=== PATIENT | female | born 1965 ===

== ENCOUNTER 2018-03-22 10:13 | Emergency (ER) | payer OTHER ==
[2018-03-22 10:36] VITALS: BMI 29.6
[2018-03-22] MEDS ORDERED: diaZEpam 10 mg/2 ml Inj IVP STA (11:45)
[2018-03-22] MEDS ORDERED: Sodium Chloride 0.9% 1,000 ML IV ONE (11:51)
[2018-03-22] MEDS ORDERED: Sodium Chloride 0.9% 1,000 ML ONE (11:57)
[2018-03-22 11:59] LABS: BASO % 0.5 % (0.0-2.0); EOS # 0.2 K/uL (0.0-0.7); EOS % 2.1 % (0.0-4.0); HEMOGLOBIN 13.1 g/dL (11.0-16.0); LYMPH # 2.5 K/uL (1.0-4.3); LYMPH % 30.8 % (20.0-40.0); MEAN CELL VOLUME 79.1 fL (81.0-99.0); MEAN CORPUSCULAR HEMOGLOBIN 26.7 pg (27.0-31.0); MEAN CORPUSCULAR HGB CONC 33.7 g/dL (33.0-37.0); MEAN PLATELET VOLUME 8.9 fL (7.2-11.7); MONO # 0.5 K/uL (0.0-0.8); MONO % 5.8 % (0.0-10.0); NEUT % 60.8 % (50.0-75.0); RBC 4.89 Mil/uL (3.80-5.20); RED CELL DISTRIBUTION WIDTH 13.9 % (11.5-14.5); WHITE BLOOD COUNT 8.2 K/uL (4.8-10.8)
[2018-03-22 12:13] LABS: INR 1.2
[2018-03-22 12:14] LABS: PROTHROMBIN TIME 13.1 SECONDS (9.7-12.2)
[2018-03-22 12:18] LABS: ALB/GLOB RATIO 1.2 (1.0-2.1); ALBUMIN 4.1 g/dL (3.5-5.0); ALT/SGPT 31 U/L (9-52); AST/SGOT 24 U/L (14-36); BLOOD UREA NITROGEN 11 mg/dL (7-17); CALCIUM 9.8 mg/dl (8.6-10.4); GFR AFRICAN-AMERICAN > 60; GFR NON-AFRICAN AMERICAN > 60; LIPASE 65 U/L (23-300)
[2018-03-22 12:32] LABS: SQUAMOUS EPITHIAL 11 /hpf (0-5); URINE BACTERIA RARE (<OCC); URINE BILIRUBIN NEGATIVE (NEGATIVE); URINE BLOOD 1+ (NEGATIVE); URINE CLARITY Hazy (Clear); URINE COLOR Yellow (YELLOW); URINE GLUCOSE (UA) NORMAL (Normal); URINE LEUKOCYTE ESTERASE TRACE Leu/uL (Negative); URINE PROTEIN NEGATIVE (NEGATIVE); URINE UROBILINOGEN NORMAL mg/dL (0.2-1.0)
--- NOTE | 2018-03-22 14:21 | C.PDOC ---
History Of Present Illness 52 yo female w/PMHx of L-spine herniated disc, chronic lower back pain come in for evaluation of Right sided lower back pain radiating down to Right leg, associated with Right foot tingling, intermittent numbness worsen for past week. Pt admits, takes percorcet without improvement in pain. Pt also sts, " takes Ibuprofen and have constipation from it, bleeding from my rectum". Pt admits, was seen by PMD and was ref to Neurology for further evaluation and PM for pain treatment. Otherwise, pt denies high fever, chills, headache, dizziness , sore throat, neck pain, CP, SOB, dyspnea, palpitation, abd. pain, N/V/D, hematemesis, melena, UTI sx, denies saddle anesthesia, new weakness or sensory changes. Ambulate to ED w/assistance of cane, appears in pain. FYI: [facility] review, pt has multiple Rx percocet, ambien. Last ones: 02/26/18#60, #60, 12/19/16#60, 11/16/17#60, trace down monthly Time Seen by Provider: 03/22/18 11:03 Chief Complaint (Nursing): GI Problem History Per: Patient Past Medical History Reviewed: Historical Data, Nursing Documentation, Vital Signs Vital Signs: Last Vital Signs Temp 98 F 03/22/18 15:45 Pulse 85 03/22/18 15:01 Resp 19 03/22/18 15:01 BP 155/86 H 03/22/18 15:01 Pulse Ox 98 03/22/18 15:01 - Medical History PMH: Asthma, Back Problems (herniated discs in lower back), Depression, HTN, Hypercholesterolemia, Kidney Stones, Obstructive Bowel, Chronic Kidney Disease Surgical History: Cholecystectomy - [facility] Procedures CONTRAST AORTOGRAM (12/25/13) CONTRAST ARTERIOGRAM-LEG (12/25/13) Family History: States: No Known Family Hx - Social History Hx Tobacco Use: Yes Hx Alcohol Use: No Hx Substance Use: Yes (weed) - Immunization History Hx Tetanus Toxoid Vaccination: No Hx Influenza Vaccination: No Hx Pneumococcal Vaccination: No Review Of Systems Except As Marked, All Systems Reviewed And Found Negative. Constitutional: Negative for: Fever, Chills ENT: Negative for: Throat Pain Cardiovascular: Negative for: Chest Pain Respiratory: Negative for: Cough, Shortness of Breath Gastrointestinal: Positive for: Constipation. Negative for: Nausea, Vomiting, Abdominal Pain Genitourinary: Negative for: Dysuria, Frequency, Incontinence Musculoskeletal: Positive for: Back Pain. Negative for: Neck Pain Skin: Negative for: Rash Neurological: Negative for: Weakness, Numbness Physical Exam - Physical Exam Appears: Well, Non-toxic, No Acute Distress Skin: Normal Color, Warm, Dry, No Rash Head: Normacephalic Eye(s): bilateral: PERRL Nose: No Discharge Oral Mucosa: Moist Throat: No Erythema, No Drooling Neck: Trachea Midline, Supple Cardiovascular: Rhythm Regular Respiratory: No Decreased Breath Sounds, No Accessory Muscle Use, No Stridor, No Wheezing Gastrointestinal/Abdominal: Soft, No Tenderness, No Distention, No Guarding, No Rebound Back: No CVA Tenderness, Paraspinal Tenderness (Right sided lumbar extend down to Right gluteus, Right posterior thigh) Extremity: Normal ROM, Tenderness (Right posterior thigh), No Pedal Edema, No Deformity, No Swelling Neurological/Psych: Oriented x3, Normal Speech, Normal Motor, Normal Sensation ( mild decrease sensation Right foot compare to left foot.), Normal Reflexes ED Course And Treatment - Laboratory Results Result Diagrams: 03/22/18 11:52 03/22/18 11:52 Lab Interpretation: Normal O2 Sat by Pulse Oximetry: 99 Pulse Ox Interpretation: Normal Progress Note: Pt was OBS in ED for 8 hours and remaine dtsable. Pt was re- evaluated every hour, neurologicaly intact. Pt was c/o back pain, was requesting " Morphine IV", percocet PO given. case was discussed with pt's PMD . Plan, no narcotic rx, RI, discharge with outpt f/u, PM. On re- evaluation, pt is afebrile, hemodynamiclay stable. AMbulatory in ED with stable gait. Neck: Supple. ENT: no acute findings. Lungs: CTA B/L, BS equal B/L. Abd: benign, (-) guarding, (-) rebound. back: (-) CVA tenderness. neurologicaly intact. Blood owrk review, normal studies. UA results review - normal. MRI performed (+) DJD with multi-level L-spine mild foraminal stenosis. results review with pt. Pt has clinical findings c/w sL-spine herniated ruthannCHELY. Pt advised. ref. to F/u with PMD, PM in 2-3 days for re-eavl. return to Ed if any worsening or new changes. Disposition Counseled Patient/Family Regarding: Studies Performed, Diagnosis, Need For Followup, Rx Given - Disposition Referrals: Shaik Howell MD [Staff Provider] - [facility] [Provider Group] [facility] [Provider Group] Disposition: HOME/ ROUTINE Disposition Time: 18:10 Condition: STABLE Additional Instructions: LIght duty to lower back, avoid heavy lifting, bending forwards, etc take pain medication as prescribed Follow up with PMD, Pain management in 2-3 days for re-evaluation. return to Ed if any worsening or new changes. Prescriptions: Gabapentin [Neurontin] 300 mg PO TID #14 cap Prednisone [Deltasone] 60 mg PO DAILY #9 tablet traMADol [Ultram] 50 mg PO TID #10 tab Instructions: Radiculopathy, Herniated Disc Forms: [employer] ([place]) - Clinical Impression Clinical Impression: Lumbar radiculopathy
[2018-03-22] MEDS ORDERED: Oxycodone/Acetaminophen 5/325 mg Tab PO STA (15:42)
[2018-03-22] MEDS ORDERED: Oxycodone/Acetaminophen 5/325 mg Tab ONE (15:54)
--- NOTE | 2018-03-22 18:04 | MRI ---
PROCEDURE: MR LUMBAR SPINE WITHOUT CONTRAST HISTORY: Right leg weakness, hx of sciatica COMPARISON: None available. TECHNIQUE: Multiecho multiplanar sequences were performed through the lumbar spine without the use of intravenous contrast. FINDINGS: Normal lumbar lordosis. Vertebral body heights are preserved. Diffuse disc desiccation is identified with disc height loss identified at L4-5 and L5-S1. Type 2 endplate degenerative changes are seen surrounding the L5-S1 intervertebral disc space. A benign hemangioma is seen at the T12 to body incidentally with remaining lower signal remarkable only for endplate degenerative changes at L5 and S1. Conus medullaris unremarkable at the level of T12 inferior endplate. Prevertebral and paraspinal soft tissues are unremarkable. T12-L1: No disc herniation, spinal canal stenosis or neural foraminal narrowing. L1-2: No disc herniation, spinal canal stenosis or neural foraminal narrowing. L2-3: No disc herniation, spinal canal stenosis or neural foraminal narrowing. L3-4: A mild right foraminal disc protrusion cause a borderline right neural foraminal stenosis. No new left neural foraminal stenosis. Central canal is widely patent throughout. L4-5: A moderate right paracentral/lateral disc herniation is identified obliterating the right lateral recess and causing [id number] right sebas canal stenosis and moderate right neural foraminal stenosis. An underlying generalized disc bulge is appreciated circumferential to this level combined with facet degenerative changes to cause [id number] left neural foraminal stenosis. L5-S1: A right paracentral/lateral disc herniation appears mild and is accompanied by osteophytes off the associated endplates resulting in a borderline right sebas canal stenosis the right lateral recess moderately stenosed. Facet joint degenerative changes are identified symmetrically with the left lateral recess mildly stenosis on degenerative basis. No significant right neural foraminal stenosis borderline degenerative left neural foraminal stenosis. OTHER FINDINGS: None. IMPRESSION: 1. A moderate right paracentral/lateral disc herniation overlies generalized disc bulging at L4-5 resulting in a mild to moderate right sebas canal stenosis and moderate right neural foraminal stenosis. A degenerative stenosis is mild to moderate at the left neural foramen. 2. A mild right paracentral/ lateral disc herniation is seen at L5-S1 causing mild right sebas canal stenosis but is also accompanied by osteophytes indicating nonacute process. No significant right neural foraminal stenosis with mild degenerative left neural foraminal stenosis present. 3. A mild right foraminal disc protrusion at L3-4 causes borderline right neural foraminal stenosis.
[2018-03-22 18:29] VITALS: BP 121/86; PULSE 78; RESP 18; TEMP 99.3; O2SAT 95
== END 2018-03-22 19:02 | disposition home or self-care (01) ==
LOC: C.ER 10:13
DX: M54.16 Radiculopathy, lumbar region (principal); E78.00 Pure hypercholesterolemia, unspecified; I12.9 Hypertensive chronic kidney disease with stage 1 through stage 4 chronic kidney disease, or unspecified chronic kidney disease; N18.9 Chronic kidney disease, unspecified; Z72.0 Tobacco use
CPT/HCPCS: 72148; 80053; 81001; 83690; 85025; 85610; 85730; 96361; 96374; 96375; 99285; J1885; J2930; J7040